=== PATIENT | female | born 1970 | race Caucasian/White ===

== ENCOUNTER 2017-02-19 21:40 | Emergency (ER) | payer SELFPAY ==
[~2017-02-19] VITALS: Ht 157.5 cm; Wt 69.9 kg
[2017-02-19 21:45] VITALS: BP 151/92
--- NOTE | 2017-02-19 21:46 | ED.ADGEN ---
Adult General Chief Complaint Chief Complaint Neck pain and bilateral arm numbness [facility] HPI Patient is a 46 year old female who presents with neck pain and bilateral intermittent arm numbness going on over the last 6 months. She states over the last several weeks is getting worse. She states she's been using salt baths, Motrin, and other remedies without any success. She states intermittently her bilateral hands feel swollen and then there is a numbness sensation it goes up to her mid forearms, she states is also hot [place] sensation it comes down from her neck always down to bilateral arms. She states she's been told she has scoliosis of her neck. She states 2 weeks ago she fell and not herself the left arm and she wonders this doesn't make the symptoms worse. She states that she has no insurance and doesn't have a primary care physician. Review of Systems Review of Systems Constitutional: Denies fever or chills [] Eyes: Denies change in visual acuity, redness, or eye pain [] HENT: Denies nasal congestion or sore throat [] Respiratory: Denies cough or shortness of breath [] Cardiovascular: No additional information not addressed in HPI [] GI: Denies abdominal pain, nausea, vomiting, bloody stools or diarrhea [] : Denies dysuria or hematuria [] Musculoskeletal: Positive for neck Integument: Denies rash or skin lesions [] Neurologic: Denies headache, focal weakness or sensory changes [] Endocrine: Denies polyuria or polydipsia [] Physical Exam Physical Exam Constitutional: Well developed, well nourished, no acute distress, non-toxic appearance. [] HENT: Normocephalic, atraumatic, bilateral external ears normal, oropharynx moist, no oral exudates, nose normal. [] Eyes: PERRLA, EOMI, conjunctiva normal, no discharge. [] Neck: Normal range of motion, no tenderness, supple, no stridor. [] Cardiovascular:Heart rate regular rhythm, no murmur [] Lungs & Thorax: Bilateral breath sounds clear to auscultation [] Abdomen: Bowel sounds normal, soft, no tenderness, no masses, no pulsatile masses. [] Skin: Warm, dry, no erythema, no rash. [] Back: No step-offs noted, mild tender palpation in the paraspinal area bilateral cervical spine, no CVA tenderness. [] Extremities: No tenderness, no cyanosis, no clubbing, ROM intact, no edema. Radial pulse 2+ bilateral upper extremities. Neurologic: Alert and oriented X 3, normal motor function, normal sensory function, no focal deficits noted. To 5 bilateral upper with flexion and extension of shoulders, elbows, wrists hands, radial pulse 2+ bilaterally, sensation intact to median ulnar and radial nerve distributions bilaterally. Psychologic: Affect normal, judgement normal, mood normal. [] Current Patient Data Lab Results Laboratory Tests Test 02/19/17 22:30 02/19/17 22:37 Urine Collection Type Void Urine Color Yellow Urine Clarity Clear Urine pH 6.0 Urine Specific [place] 1.015 Urine Protein Neg (NEG-TRACE) Urine Glucose (UA) Neg mg/dL (NEG) Urine Ketones (Stick) Neg mg/dL (NEG) Urine Blood Trace (NEG) Urine Nitrite Neg (NEG) Urine Bilirubin Neg (NEG) Urine Urobilinogen Dipstick 0.2 mg/dL (0.2 mg/dL) Urine Leukocyte Esterase Neg (NEG) Urine RBC 0 /HPF (0-2) Urine WBC 0 /HPF (0-4) Urine Squamous Epithelial Cells Mod /LPF Urine Bacteria 0 /HPF (0-FEW) Sodium Level 142 mmol/L (136-145) Potassium Level 3.6 mmol/L (3.5-5.1) Chloride Level 106 mmol/L (98-107) Carbon Dioxide Level 26 mmol/L (21-32) Anion Gap 10 (6-14) Blood Urea Nitrogen 9 mg/dL (7-20) Creatinine 0.6 mg/dL (0.6-1.0) Estimated GFR (Cockcroft-Gault) 108.6 BUN/Creatinine Ratio 15 (6-20) Glucose Level 120 mg/dL (70-99) H Calcium Level 8.1 mg/dL (8.5-10.1) L Total Bilirubin 0.3 mg/dL (0.2-1.0) Aspartate Amino Transferase (AST) 10 U/L (15-37) L Alanine Aminotransferase (ALT) 22 U/L (14-59) Alkaline Phosphatase 75 U/L (46-116) Total Protein 6.9 g/dL (6.4-8.2) Albumin 3.9 g/dL (3.4-5.0) Albumin/Globulin Ratio 1.3 (1.0-1.7) POC Urine HCG, Qualitative hcg negative (Negative) EKG EKG [] Radiology/Procedures Radiology/Procedures [address] [id number] IMAGING REPORT Signed PATIENT: DAVID NGUYEN ACCOUNT: [id number] : 1970 LOCATION: ER AGE: 46 SEX: F EXAM STATUS: PRE ER ORD. PHYSICIAN: KATYA SHELL MD REASON: neck pain and bilateral arm numbness PROCEDURE: CT HEAD AND CERVICAL SPINE WO Examination: CT head and cervical spine without contrast HISTORY: History of slip and fall, neck pain, bilateral arm numbness COMPARISON: Available TECHNIQUE: Axial CT images of the head was performed without contrast. Axial images of the cervical spine with and without contrast. Coronal and sagittal reformats were performed. Exposure: One or more of the following individualized dose reduction techniques were utilized for this examination: 1. Automated exposure control 2. Adjustment of the mA and/or kV according to patient size 3. Use of iterative reconstruction technique Findings: There is no evidence of midline shift. There is no acute intracranial bleed or extra-axial fluid collection identified. The harrington-white matter mineralization is maintained. The visualized lateral ventricles, third ventricle, fourth ventricle appropriate for age. The basal cisterns aren't effaced. Small mucous retention cyst or polyp identified in the right maxillary sinus. The vertebral body heights are maintained. There is reversal of normal cervical lordosis likely secondary to muscle spasm or pain. The bilateral facets are well aligned. The lateral masses of C1 align with C2 vertebra. The C2 dens appears intact. 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 IMPRESSION: 1. No acute intracranial findings. 2. No acute fracture the cervical spine. Correlate clinically. 2. There is reversal of normal cervical lordosis likely secondary to muscle spasm or pain. Correlate clinically. Electronically signed by: Modesto Fair MD (02/19/2017 11:16 PM) DICTATED AND SIGNED BY: MODESTO FAIR MD DATE: 02/19/17 [id number] CC: KATYA SHELL MD; KOLE SAENZ APRN ~ Course & Med Decision Making Course & Med Decision Making Pertinent Labs and Imaging studies reviewed. (See chart for details) CT scan does not show any acute abnormalities. Her symptoms are intermittent and is likely secondary to muscle spasm or strain or overuse. Patient will need follow-up as an outpatient. We'll discharge with Flexeril and prednisone. Return precautions given. Patient is agreeable Plan B discharged in stable condition this time. Final Impression Final Impression Neck pain Intermittent arm numbness Problems: Dragon Disclaimer Dragon Disclaimer This electronic medical record was generated, in whole or in part, using a voice recognition dictation system. KATYA SHELL MD Feb 19, 2017 21:46
[2017-02-19 23:02] LABS: ALBUMIN 3.9 g/dL (3.4-5.0); ALBUMIN/GLOBULIN RATIO 1.3 (1.0-1.7); CALCIUM 8.1 mg/dL (8.5-10.1); CREATININE 0.6 mg/dL (0.6-1.0); GFR 108.6; POTASSIUM 3.6 mmol/L (3.5-5.1); TOTAL BILIRUBIN 0.3 mg/dL (0.2-1.0); TOTAL PROTEIN 6.9 g/dL (6.4-8.2)
[2017-02-19 23:15] LABS: BILIRUBIN,URINE NEG (NEG); CLARITY,URINE CLEAR; COLOR,URINE YELLOW; GLUCOSE,URINE NEG (NEG); NITRITE,URINE NEG (NEG); UROBILINOGEN,URINE 0.2 mg/dL (0.2 mg/dL)
[2017-02-19 23:16] LABS: BACTERIA,URINE 0 /HPF (0-FEW); RBC,URINE 0 /HPF (0-2); SQUAMOUS EPITHELIAL CELL,UR MOD /LPF; WBC,URINE 0 /HPF (0-4)
--- NOTE | 2017-02-19 23:20 | RAD ---
Examination: CT head and cervical spine without contrast HISTORY: History of slip and fall, neck pain, bilateral arm numbness COMPARISON: Available TECHNIQUE: Axial CT images of the head was performed without contrast. Axial images of the cervical spine with and without contrast. Coronal and sagittal reformats were performed. Exposure: One or more of the following individualized dose reduction techniques were utilized for this examination: 1. Automated exposure control 2. Adjustment of the mA and/or kV according to patient size 3. Use of iterative reconstruction technique Findings: There is no evidence of midline shift. There is no acute intracranial bleed or extra-axial fluid collection identified. The harrington-white matter mineralization is maintained. The visualized lateral ventricles, third ventricle, fourth ventricle appropriate for age. The basal cisterns aren't effaced. Small mucous retention cyst or polyp identified in the right maxillary sinus. The vertebral body heights are maintained. There is reversal of normal cervical lordosis likely secondary to muscle spasm or pain. The bilateral facets are well aligned. The lateral masses of C1 align with C2 vertebra. The C2 dens appears intact. 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 IMPRESSION: 1. No acute intracranial findings. 2. No acute fracture the cervical spine. Correlate clinically. 2. There is reversal of normal cervical lordosis likely secondary to muscle spasm or pain. Correlate clinically. Electronically signed by: Modesto Fair MD (02/19/2017 11:16 PM)
[2017-02-19] MEDS ORDERED: CYCL-331 PO (23:30)
[2017-02-19] MEDS ORDERED: PRED50TA PO (23:30)
[2017-02-19] MEDS ORDERED: predniSONE 10 MG TABLET PO ONE (23:45)
[2017-02-19] MEDS ORDERED: CYCLOBENZAPRINE 10MG 4TABLET STARTPACK PO ONE (23:45)
[2017-02-19 23:54] LABS: BASO # 0.1 x10^3/uL (0.0-0.2); BASO % 1 % (0-3); EOS # 0.3 x10^3/uL (0.0-0.7); EOS % 4 % (0-3); HEMATOCRIT 42.2 % (36.0-47.0); HEMOGLOBIN 14.5 g/dL (12.0-15.5); LYMPH # 2.7 x10^3/uL (1.0-4.8); LYMPH % 34 % (24-48); MEAN CORPUSCULAR HEMOGLOBIN 28 pg (25-35); MEAN CORPUSCULAR HGB CONC 34 g/dL (31-37); MEAN CORPUSCULAR VOLUME 82 fL (79-100); MONO # 0.5 x10^3/uL (0.0-1.1); MONO % 7 % (0-9); NEUT # 4.2 x10^3uL (1.8-7.7); NEUT % 54 % (31-73); PLATELET COUNT 282 x10^3/uL (140-400); RED BLOOD COUNT 5.16 x10^6/uL (3.50-5.40); RED CELL DISTRIBUTION WIDTH 14.3 % (11.5-14.5); WHITE BLOOD COUNT 7.8 x10^3/uL (4.0-11.0)
== END 2017-02-19 23:45 | disposition home or self-care (01) ==
LOC: ER 21:40
DX: M54.2 Cervicalgia (principal); R20.0 Anesthesia of skin; Z91.81 History of falling
CPT/HCPCS: 36415; 70450; 72125; 80053; 81001; 81025; 85027; 99285; J7512